=== PATIENT | male | born 1960 | race American Indian/Alaskan Native ===

== ENCOUNTER 2020-09-28 07:45 | Emergency (ER) | payer OTHER, MEDICARE ==
[2020-09-28] MEDS ORDERED: Sodium Chloride 0.9% 10 ML Syringe FLUSH PRN (08:07)
[2020-09-28] MEDS ORDERED: Hydrocortisone Sodium Succinate 100 MG/2 ML SDV IVPUSH ONE (08:09)
--- NOTE | 2020-09-28 08:55 | EDM.PDOC ---
ED HPI GENERAL MEDICAL PROBLEM - General Chief Complaint: General Stated Complaint: [facility] Time Seen by Provider: 09/28/20 08:07 Source of Information: Reports: Patient, EMS History Limitations: Reports: No Limitations - History of Present Illness INITIAL COMMENTS - FREE TEXT/NARRATIVE: The patient presents by [facility] for falls and altered mental status. 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 He has adrenal insufficiency since then. The patient and his have traveled here from [place] to visit family. He has been weak and fell a couple of times. Yesterday was a hard fall and EMS was called to help him up. He was fine and they left. This morning he is confused and has generalized weakness. He has no headache, chest pain, shortness of breath, neck pain, abdominal pain, nausea or vomiting. He is on xarelto. He has slurred speech today. Onset: Gradual Duration: Day(s): Severity: Moderate Improves with: Reports: None Worsens with: Reports: None Associated Symptoms: Reports: Confusion. Denies: Chest Pain, Cough, Fever/Chills, Headaches, Nausea/Vomiting, Shortness of Breath Neck Pain Score (Numeric/FACES): 4 - Related Data Allergies Allergy/AdvReac Type Severity Reaction Status Date / Time No Known Allergies Allergy Verified 06/29/15 12:31 Home Meds: Home Meds Levothyroxine Sodium [Synthroid] 150 mcg PO DAILY 09/28/20 [History] Phenytoin Sodium Extended [Dilantin] 200 mg PO BID 09/28/20 [History] Rivaroxaban [Xarelto] 20 mg PO DAILY 09/28/20 [History] Testosterone [Androderm] 1 each TD Q24H 09/28/20 [History] atorvaSTATin [Lipitor] 40 mg PO DAILY 09/28/20 [History] levETIRAcetam [Keppra] 2,000 mg PO BID 09/28/20 [History] predniSONE [Prednisone] 5 mg PO DAILY 09/28/20 [History] Past Medical History Other HEENT History: brain tumor 21 years ago Other Gastrointestinal History: H-pylori and ulcer - Past Surgical History Other GI Surgeries/Procedures: small intestion ruptured, surgery at 7yo ED ROS GENERAL - Review of Systems Review Of Systems: See Below Constitutional: Reports: No Symptoms HEENT: Reports: No Symptoms Respiratory: Reports: No Symptoms Cardiovascular: Reports: No Symptoms Endocrine: Reports: No Symptoms GI/Abdominal: Reports: No Symptoms : Reports: No Symptoms Musculoskeletal: Reports: Other (Ecchymosis left elbow) ED EXAM, GENERAL - Physical Exam Exam: See Below Exam Limited By: No Limitations General Appearance: Alert, No Apparent Distress Ears: Normal External Exam Nose: Normal Inspection Head: Atraumatic, Normocephalic Neck: Normal Inspection, Supple, Non-Tender Respiratory/Chest: No Respiratory Distress, Lungs Clear, Normal Breath Sounds Cardiovascular: Regular Rate, Rhythm, No Edema, No Murmur GI/Abdominal: Soft, Non-Tender, No Organomegaly, No Mass Back Exam: Normal Inspection Extremities: Other (Ecchymosis left elbow but no edema or pain upon palpation) Neurological: Alert, Other (slurred speech and generalized weakness) #1 Interpretation EKG Date: 09/28/20 Time: 08:59 Rhythm: NSR Rate (Beats/Min): 91 [place]: LAD-Left [place] Deviation P-Wave: Present QRS: Normal ST-T: Normal QT: Normal Course - Vital Signs Last Recorded V/S: Last Vital Signs Temp 98.5 F 09/28/20 07:55 Pulse 85 09/28/20 12:13 Resp 22 H 09/28/20 07:55 BP 103/62 09/28/20 12:13 Pulse Ox 94 L 09/28/20 07:55 - Orders/Labs/Meds Orders: Active Orders 24 hr Category Date Time Status Cardiac Monitoring [RC] . DIRECTED Care 09/28/20 08:08 Active EKG Documentation Completion [RC] STAT Care 09/28/20 08:08 Active Oxygen Therapy [RC] PRN Care 09/28/20 08:08 Active Peripheral IV Care [RC] . DIRECTED Care 09/28/20 08:08 Active CULTURE BLOOD [BC] Stat Lab 09/28/20 08:30 Received CULTURE BLOOD [BC] Stat Lab 09/28/20 08:30 Received UA W/MICROSCOPIC [URIN] Stat Lab 09/28/20 08:07 Ordered Sodium Chloride 0.9% [Saline Flush] Med 09/28/20 08:07 Active 10 ml FLUSH ASDIRECTED PRN Blood Culture x2 Reflex Set [OM.PC] Stat Oth 09/28/20 08:09 Ordered Peripheral IV Insertion Adult [OM.PC] Stat Oth 09/28/20 08:07 Ordered Medication Orders Sodium Chloride (Saline Flush) 10 ml FLUSH ASDIRECTED PRN PRN Reason: Keep Vein Open Last Admin: 09/28/20 08:20 Dose: 10 ml Documented by: SAIDA Labs: Laboratory Tests 09/28/20 09/28/20 09/28/20 Range/Units 08:10 08:30 08:30 WBC 25.14 H (4.23-9.07) K/mm3 RBC 4.36 L (4.63-6.08) M/mm3 Hgb 13.4 L (13.7-17.5) gm/dl Hct 41.4 (40.1-51.0) % MCV 95.0 H D (79.0-92.2) fl MCH 30.7 (25.7-32.2) pg MCHC 32.4 (32.2-35.5) g/dl RDW Std Deviation 49.1 H (35.1-43.9) fL Plt Count 232 (163-337) K/mm3 MPV 9.5 (9.4-12.3) fl Neut % (Auto) 81.2 H (34.0-67.9) % Lymph % (Auto) 8.2 L (21.8-53.1) % [place] % (Auto) 10.1 (5.3-12.2) % Eos % (Auto) 0 L (0.8-7.0) Baso % (Auto) 0.1 (0.1-1.2) % Neut # (Auto) 20.40 H (1.78-5.38) K/mm3 Lymph # (Auto) 2.06 (1.32-3.57) K/mm3 [place] # (Auto) 2.55 H (0.30-0.82) K/mm3 Eos # (Auto) 0.01 L (0.04-0.54) K/mm3 Baso # (Auto) 0.03 (0.01-0.08) K/mm3 Manual Slide Review Abnormal smear D-Dimer, Quantitative 0.74 H (0.19-0.50) mg/L Sodium (136-145) mEq/L Potassium (3.5-5.1) mEq/L Chloride (98-107) mEq/L Carbon Dioxide (21-32) mEq/L Anion Gap (5-15) BUN (7-18) mg/dL Creatinine (0.7-1.3) mg/dL Est Cr Clr Drug Dosing Estimated GFR (MDRD) (>60) mL/min BUN/Creatinine Ratio (14-18) Glucose (80-115) mg/dL POC Glucose 87 (80-115) mg/dL Lactic Acid (0.4-2.0) mmol/L Calcium (8.5-10.1) mg/dL Magnesium (1.8-2.4) mg/dl Ferritin (26-388) ng/ml Total Bilirubin (0.2-1.0) mg/dL AST (15-37) U/L ALT (16-63) U/L Alkaline Phosphatase (46-116) U/L Lactate Dehydrogenase (85-227) U/L Troponin I (0.00-0.056) ng/mL C-Reactive Protein (<1.0) mg/dL Total Protein (6.4-8.2) g/dl Albumin (3.4-5.0) g/dl Globulin gm/dL Albumin/Globulin Ratio (1-2) SARS-CoV-2 RNA (JENARO) (NEGATIVE) 09/28/20 09/28/20 09/28/20 Range/Units 08:30 08:30 09:10 WBC (4.23-9.07) K/mm3 RBC (4.63-6.08) M/mm3 Hgb (13.7-17.5) gm/dl Hct (40.1-51.0) % MCV (79.0-92.2) fl MCH (25.7-32.2) pg MCHC (32.2-35.5) g/dl RDW Std Deviation (35.1-43.9) fL Plt Count (163-337) K/mm3 MPV (9.4-12.3) fl Neut % (Auto) (34.0-67.9) % Lymph % (Auto) (21.8-53.1) % [place] % (Auto) (5.3-12.2) % Eos % (Auto) (0.8-7.0) Baso % (Auto) (0.1-1.2) % Neut # (Auto) (1.78-5.38) K/mm3 Lymph # (Auto) (1.32-3.57) K/mm3 [place] # (Auto) (0.30-0.82) K/mm3 Eos # (Auto) (0.04-0.54) K/mm3 Baso # (Auto) (0.01-0.08) K/mm3 Manual Slide Review D-Dimer, Quantitative (0.19-0.50) mg/L Sodium 138 (136-145) mEq/L Potassium 4.1 (3.5-5.1) mEq/L Chloride 103 (98-107) mEq/L Carbon Dioxide 28 (21-32) mEq/L Anion Gap 11.1 (5-15) BUN 17 (7-18) mg/dL Creatinine 1.2 (0.7-1.3) mg/dL Est Cr Clr Drug Dosing TNP Estimated GFR (MDRD) > 60 (>60) mL/min BUN/Creatinine Ratio 14.2 (14-18) Glucose 92 (80-115) mg/dL POC Glucose (80-115) mg/dL Lactic Acid 0.8 (0.4-2.0) mmol/L Calcium 8.9 (8.5-10.1) mg/dL Magnesium 1.9 (1.8-2.4) mg/dl Ferritin 164 (26-388) ng/ml Total Bilirubin 0.7 (0.2-1.0) mg/dL AST 62 H (15-37) U/L ALT 41 (16-63) U/L Alkaline Phosphatase 83 (46-116) U/L Lactate Dehydrogenase 214 (85-227) U/L Troponin I < 0.017 (0.00-0.056) ng/mL C-Reactive Protein 27.0 H* (<1.0) mg/dL Total Protein 7.0 (6.4-8.2) g/dl Albumin 3.3 L (3.4-5.0) g/dl Globulin 3.7 gm/dL Albumin/Globulin Ratio 0.9 L (1-2) SARS-CoV-2 RNA (JENARO) (NEGATIVE) 09/28/20 Range/Units 09:20 WBC (4.23-9.07) K/mm3 RBC (4.63-6.08) M/mm3 Hgb (13.7-17.5) gm/dl Hct (40.1-51.0) % MCV (79.0-92.2) fl MCH (25.7-32.2) pg MCHC (32.2-35.5) g/dl RDW Std Deviation (35.1-43.9) fL Plt Count (163-337) K/mm3 MPV (9.4-12.3) fl Neut % (Auto) (34.0-67.9) % Lymph % (Auto) (21.8-53.1) % [place] % (Auto) (5.3-12.2) % Eos % (Auto) (0.8-7.0) Baso % (Auto) (0.1-1.2) % Neut # (Auto) (1.78-5.38) K/mm3 Lymph # (Auto) (1.32-3.57) K/mm3 [place] # (Auto) (0.30-0.82) K/mm3 Eos # (Auto) (0.04-0.54) K/mm3 Baso # (Auto) (0.01-0.08) K/mm3 Manual Slide Review D-Dimer, Quantitative (0.19-0.50) mg/L Sodium (136-145) mEq/L Potassium (3.5-5.1) mEq/L Chloride (98-107) mEq/L Carbon Dioxide (21-32) mEq/L Anion Gap (5-15) BUN (7-18) mg/dL Creatinine (0.7-1.3) mg/dL Est Cr Clr Drug Dosing Estimated GFR (MDRD) (>60) mL/min BUN/Creatinine Ratio (14-18) Glucose (80-115) mg/dL POC Glucose (80-115) mg/dL Lactic Acid (0.4-2.0) mmol/L Calcium (8.5-10.1) mg/dL Magnesium (1.8-2.4) mg/dl Ferritin (26-388) ng/ml Total Bilirubin (0.2-1.0) mg/dL AST (15-37) U/L ALT (16-63) U/L Alkaline Phosphatase (46-116) U/L Lactate Dehydrogenase (85-227) U/L Troponin I (0.00-0.056) ng/mL C-Reactive Protein (<1.0) mg/dL Total Protein (6.4-8.2) g/dl Albumin (3.4-5.0) g/dl Globulin gm/dL Albumin/Globulin Ratio (1-2) SARS-CoV-2 RNA (JENARO) Negative (NEGATIVE) Meds: Medications Generic Name Dose Route Start Last Admin Trade Name Freq PRN Reason Stop Dose Admin Sodium Chloride 10 ml 09/28/20 08:07 09/28/20 08:20 Saline Flush FLUSH 10 ml ASDIRECTED PRN Administration Keep Vein Open Discontinued Medications Generic Name Dose Route Start Last Admin Trade Name Freq PRN Reason Stop Dose Admin Hydrocortisone Sodium Succinate 100 mg 09/28/20 08:09 09/28/20 08:20 Solu-Cortef IVPUSH 09/28/20 08:10 100 mg ONETIME ONE Administration - Re-Assessments/Exams Free Text/Narrative Re-Assessment/Exam: 09/28/20 09:07 A stroke alert was called. I ordered oxygen, IV saline lock, EKG, CT of his head, labs and hydrocortisone 100mg IV. His EKG shows a NSR with no acute changes. The radiologist called and the patient has interval appearance of low-density bilateral subdural collections measuring up to 9mm on the right and 7mm on the left representing chronic or subacute subdural hematomas. Remainder of findings non acute. 09/28/20 10:12 His WBC was elevated at 25.14. He is on prednisone. His Hgb is a little low at 13.4. His platelets are normal at 232. His D-dimer is elevated at 0.74. His troponin is negative. His CRP is elevated at 27. I was able to get in contact with the patient's and she said he has been more weak for the past week. He fell a couple days ago and last night. This morning he was more weak and had slurred speech. I have called [facility] in [place]. I am waiting to talk with Dr Brush the neurosurgeon outreach liaison and he is not concerned about the subdural bleeds. These are chronic and probably from weeks or months ago. His shunt looks go be working. There is nothing neurosurgical needed. I still need placement for the falls and weakness. [facility] may have beds opening up after noon. I will check back. 09/28/20 12:17 I checked with [facility] in [place] and they did have a bed that was opening up so on. I talked with Dr Steward and he accepted the patient. Departure - Departure Time of Disposition: 12:20 Disposition: DC/Tfer to Acute Hospital 02 Condition: Poor Clinical Impression: Subdural hematoma, Adrenal crisis Fall Qualifiers: Encounter type: initial encounter Qualified Code(s): W19.XXXA - Unspecified fall, initial encounter - Discharge Information Referrals: PCP,None [Ordering Only Provider] - Forms: ED Department Discharge Sepsis Event Note (ED) - Evaluation Sepsis Screening Result: No Definite Risk - Focused Exam Vital Signs: Vital Signs Temp Pulse Resp BP Pulse Ox 09/28/20 12:13 85 103/62 09/28/20 07:55 98.5 F 93 22 H 111/67 94 L - My Orders Last 24 Hours: My Active Orders 09/28/20 08:07 UA W/MICROSCOPIC [URIN] Stat Sodium Chloride 0.9% [Saline Flush] 10 ml FLUSH ASDIRECTED PRN Peripheral IV Insertion Adult [OM.PC] Stat 09/28/20 08:08 Cardiac Monitoring [RC] . DIRECTED EKG Documentation Completion [RC] STAT Oxygen Therapy [RC] PRN Peripheral IV Care [RC] . DIRECTED 09/28/20 08:09 Blood Culture x2 Reflex Set [OM.PC] Stat 09/28/20 08:30 CULTURE BLOOD [BC] Stat CULTURE BLOOD [BC] Stat - Assessment/Plan Last 24 Hours: My Active Orders 09/28/20 08:07 UA W/MICROSCOPIC [URIN] Stat Sodium Chloride 0.9% [Saline Flush] 10 ml FLUSH ASDIRECTED PRN Peripheral IV Insertion Adult [OM.PC] Stat 09/28/20 08:08 Cardiac Monitoring [RC] . DIRECTED EKG Documentation Completion [RC] STAT Oxygen Therapy [RC] PRN Peripheral IV Care [RC] . DIRECTED 09/28/20 08:09 Blood Culture x2 Reflex Set [OM.PC] Stat 09/28/20 08:30 CULTURE BLOOD [BC] Stat CULTURE BLOOD [BC] Stat
--- NOTE | 2020-09-28 09:30 | CR ---
PROCEDURE INFORMATION: Exam: XR Chest, 1 View Exam date and time: 09/28/2020 8:11 AM Age: 60 years old Clinical indication: Chest pain; Type not specified TECHNIQUE: Imaging protocol: XR of the chest Views: 1 view. COMPARISON: DX Chest 2V 03/16/2015 8:51 PM FINDINGS: Tubes, catheters and devices: Shunt catheter along the right chest and abdomen. Lungs: No evidence of acute pulmonary process. Pleural space: Unremarkable. No pleural effusion. No pneumothorax. Heart/Mediastinum: Unremarkable. No cardiomegaly. Bones/joints: Mild degenerative changes of the shoulder joints. IMPRESSION: No evidence of acute pulmonary process. Remainder of findings as described above. Thank you for allowing us to participate in the care of your patient. Dictated and Authenticated by: Daylin Ag MD 09/28/2020 10:13 AM Central Time ([place] & [place]) KAYODE
--- NOTE | 2020-09-28 09:32 | CT ---
PROCEDURE INFORMATION: Exam: CT Head Without Contrast Exam date and time: 09/28/2020 8:11 AM Age: 60 years old Clinical indication: Speech disturbance; Slurred speech; Prior surgery; Surgery type: Patient has had previous brain tumor removed according to nurse TECHNIQUE: Imaging protocol: Computed tomography of the head without contrast. Other technique: STROKE PROTOCOL was implemented. COMPARISON: CT Head wo Cont 06/29/2015 12:50 PM FINDINGS: Tubes, catheters and devices: Shunt catheter enters the right parietal region with tip in the left frontal horn. Brain: Prominent sulci. Patchy hypodensity of the cerebral white matter which are nonspecific but likely secondary to microangiopathic changes. Focus of left parietal encephalomalacia. Interval appearance of low-density bilateral subdural collections measuring up to 9 mm on the right and 7 mm on the left likely representing chronic or subacute subdural hematomas. Cerebral ventricles: The ventricles are prominent secondary to diffuse volume loss/atrophy. Bones/joints: Status post suboccipital craniectomy. Paranasal sinuses: Mild mucoperiosteal thickening of the paranasal sinuses. Mastoid air cells: Visualized mastoid air cells are well aerated. Soft tissues: Unremarkable. IMPRESSION: 1. Interval appearance of low-density bilateral subdural collections measuring up to 9 mm on the right and 7 mm on the left likely representing chronic or subacute subdural hematomas. 2. Remainder of findings as described above. These findings were discussed with GARCIA Fischer at 10:25 a.m. EST. ASSESSMENT: ASPECTS ([place] Stroke Program Early CT Score) is 10 Thank you for allowing us to participate in the care of your patient. Dictated and Authenticated by: Daylin Ag MD 09/28/2020 9:28 AM Central Time ([place] & [place]) [facility]ENTER[facility]assan
[2020-09-28 12:13] VITALS: BP 103/62; PULSE 85
== END 2020-09-28 14:00 ==
LOC: JD.ED 07:45
DX: S06.5X9A Traumatic subdural hemorrhage with loss of consciousness of unspecified duration, initial encounter (principal); E27.2 Addisonian crisis; Z79.01 Long term (current) use of anticoagulants; Z79.899 Other long term (current) drug therapy; W19.XXXA Unspecified fall, initial encounter
CPT/HCPCS: 36415; 70450; 71045; 80053; 82728; 82962; 83605; 83615; 83735; 84484; 85025; 85379; 86140; 87040; 93005; 96374; 99285; J1720; U0002; 93010; 99284

== ENCOUNTER 2021-07-19 06:36 | Emergency (ER) | payer MEDICARE, OTHER ==
--- NOTE | 2021-07-19 06:52 | EDM.PDOC ---
ED HPI GENERAL MEDICAL PROBLEM <Cash Villaseñor - Last Filed: 07/19/21 10:52> - General Source of Information: Reports: Patient, EMS History Limitations: Reports: Physical Impairment (Patient speaks quite slowly as he has had previous brain tumor resection but understands Persian very well.) - History of Present Illness Onset: Sudden Onset Date: 07/18/21 Onset Time: 23:00 Duration: Hour(s):, Constant Location: Reports: Head, Neck, Chest, Back (He did lower back) Quality: Reports: Ache Severity: Moderate Improves with: Reports: None Worsens with: Reports: Movement (Medics had a good deal of difficulty getting him up from the floor with a lot of pain reportedly left ribs and lower back) Context: Reports: Trauma (Reportedly fell out of a chair at home around 2300 hrs. last night and was on the floor until discovered at 0500 hrs. this morning. He obviously struck his head with a superficial abrasion left vertex parietal scalp. He is on Xarelto 10 mg daily and therefore he became a trauma alert.). Denies: Activity, Exercise, Lifting, Sick Contact Associated Symptoms: Reports: Chest Pain, Malaise, Weakness (Right-sided hemiparesis since brain tumor resection 1991). Denies: Confusion, Cough, cough w sputum (Chest wall pain to palpation), Diaphoresis, Fever/Chills, Headaches, Nausea/Vomiting Treatments CORD TIRE BUILDER: Reports: Other (see below) (Attics reportedly given 100 mcg of fentanyl at 0500 hrs. and again at 0530 hrs. in route to [place].) Right Chest Pain Score (Numeric/FACES): 5 <Pancho Harris - Last Filed: 07/23/21 19:55> - General Chief Complaint: Trauma Stated Complaint: [facility] Time Seen by Provider: 07/19/21 06:38 - History of Present Illness INITIAL COMMENTS - FREE TEXT/NARRATIVE: 60-year-old male of [place] ancestry presents to the ED per [place] [facility]. He reports that about 2300 hrs. central standard time the chair in which she was sitting somehow overturned causing him to fall to the floor. Partly hit his head on the floor. No loss of consciousness. Is unclear how long he may have laid on the floor but it appears that was for about 5 hours. Paramedics were summoned to his home around 0500 hrs. central standard time. They indicate that he received 100 mcg of fentanyl at 0500 hrs. and again at 0530 hrs. for pain. Is unclear where he is having most of his pain. He obviously hit his head and is having some pain within his left lateral ribs as well. He denies any pain in his hips or lower extremities. He falls frequently as he has had a previous brain tumor resected in 1991. 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 His had previous radiotherapy to the brain x25 treatments. Was complicated by the development of seizure disorder. Primarily grand mal convulsions treated with Keppra. Brain biopsy in September 2014 confirmed radiation damage. 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 Patient wears depends at all times due to incontinence of both urine and stool. He has a right-sided hemiparesis. Notes indicate that he was using Dilantin for seizure disorder and is unclear if he still on this medication. He is currently on Xarelto 10 mg daily. This places him at risk of potential intracranial bleeding since he struck his head. Therefore a trauma alert was called on this patient. (Pancho Harris) - Related Data Allergies Allergy/AdvReac Type Severity Reaction Status Date / Time No Known Allergies Allergy Verified 07/19/21 06:54 Home Meds: Home Meds Levothyroxine Sodium [Synthroid] 150 mcg PO DAILY 09/28/20 [History] Phenytoin Sodium Extended [Dilantin] 100 mg PO BID 09/28/20 [History] Rivaroxaban [Xarelto] 10 mg PO DAILY 09/28/20 [History] atorvaSTATin [Lipitor] 40 mg PO DAILY 09/28/20 [History] levETIRAcetam [Keppra] 750 mg PO BID 09/28/20 [History] predniSONE [Prednisone] 2.5 mg PO DAILY 09/28/20 [History] Hydrocodone/Acetaminophen [HYDROcodone-Acetaminophen 5-325 MG] 1 each PO ASDIRECTED PRN #20 tab 07/19/21 [Rx] Past Medical History HEENT History: Reports: Other (See Below) Other HEENT History: brain tumor 21 years ago. 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 He takes 5 mg of prednisone daily Oncologic (Cancer) History: Reports: Other (See Below) Other Oncologic History: brain tumor - Past Surgical History Other GI Surgeries/Procedures: small intestion ruptured, surgery at 7yo Endocrine Surgical History: Reports: Adrenal Gland <Pancho Harris - Last Filed: 07/23/21 19:55> Social & Family History - Caffeine Use Caffeine Use: Reports: Coffee - Living Situation & Occupation Living situation: Reports: Occupation: Disabled <Pancho Harris - Last Filed: 07/23/21 19:55> Review of Systems - Review of Systems Review Of Systems: See Below Constitutional: Reports: Weakness. Denies: Chills, Diaphoresis, Fever Eyes: Reports: Other (Patient has poor vision eye loss of right sided peripheral vision. Suspect he has a hemianopsia post) Ears: Reports: No Symptoms ( brain surgery) Nose: Reports: No Symptoms Mouth/Throat: Reports: No Symptoms, Other Respiratory: Denies: Shortness of Breath, Wheezing, Pleuritic Chest Pain, Cough, Sputum Cardiovascular: Reports: Chest Pain (Left-sided chest pain where he hit his ribs on the floor last night) GI/Abdominal: Reports: Other (Street of previous GI bleeds.) Genitourinary: Reports: Other (Urinary incontinence as well as stool incontinence) Musculoskeletal: Reports: Other (Right-sided hemiparesis but apparently gets around with the aid of a walker.) Skin: Reports: No Symptoms Neurological: Reports: Weakness (Neurolyse weakness. He is prone to falls.). Denies: Confusion, Dizziness Psychiatric: Reports: No Symptoms <Pancho Harris - Last Filed: 07/23/21 19:55> ED EXAM, GENERAL - Physical Exam Exam: See Below Exam Limited By: No Limitations General Appearance: Alert, WD/WN, Other (Resents with a sheep will flood in place. He does answer questions although quite slowly. Temperature is 36.2 degrees heart rate 63 in sinus respiratory was 20 with O2 sats of 93% on room air. BP 108 on 66) Eye Exam: Bilateral Eye: Normal Inspection (Mild blepharal pallor bilaterally no scleral icterus), PERRL Ears: Normal External Exam Throat/Mouth: Other (Is mildly dry and coated. Poor dentition. No evidence of intraoral bleeding or injury to the tongue) Head: Other (She has a linear abrasion approximately a centimeter in width mid left vertex of his scalp over the right lower lobe. No scalp hematoma. Evidence of an old aga hole left occipital scalp) Neck: Other (Planes of tenderness to palpation midline of cervical spine from C3-C7 level. No palpable deformities or step-offs no paraspinal muscle spasm) Respiratory/Chest: Lungs Clear, Normal Breath Sounds, No Accessory Muscle Use, Respiratory Distress (Tachypnea at rest with O2 sats 92 to 93% room air. Apparently he was on 2 L of oxygen and in route to [place] administered by the paramedics from [place]. However this was after receiving 100 mcg of fentanyl IV x2 doses half hour apart), Other (She has diffuse tenderness on palpation of ribs 6 through 11 mid axillary and posterior axillary line left side with no palpable subcutaneous emphysema or crepitus.) Cardiovascular: Normal Peripheral Pulses, Regular Rate, Rhythm, No Edema, No Gallop, No Murmur, No Rub Peripheral Pulses: 2+: Carotid (L), Carotid (R), Posterior Tibial (L), Posterior Tibial (R), Dorsalis Pedis (L), Dorsalis Pedis (R) GI/Abdominal: Normal Bowel Sounds, Soft, Non-Tender, No Organomegaly, No Mass, Pelvis Stable, Other (Notable surgical scars particularly across his left upper abdomen of unclear reasoning.) (Male) Exam: No Hernia Rectal (Males) Exam: Other (Depends apparently is incontinent of urine and stool.) Back Exam: Other (Patient of his back reveals tenderness at the thoracolumbar junction and L4-L5 region of his lower back.) Extremities: Other (Venous injuries to his shoulders acromioclavicular joints collarbones humeri elbows forearms wrists or hands. Similarly I was able to lift both of his legs off the gurney and he has loss of external rotation of both hips combined with osteoarthritic change but no pain in his pelvis femurs knees or ) Neurological: Alert, Oriented, CN II-XII Intact, Normal Cognition Psychiatric: Normal Affect, Normal Mood Skin Exam: Warm, Dry, Intact, Normal Color, No Rash <Pancho Harris - Last Filed: 07/23/21 19:55> #1 Interpretation EKG Date: 07/19/21 Rhythm: Other (Normal sinus rhythm borderline bradycardia) Rate (Beats/Min): 54 Stuart: LAD-Left Stuart Deviation P-Wave: Present QRS: Normal ST-T: Normal QT: Normal Comparison: No Change (No significant morphologic changes from 09/28/2020) <Cash Villaseñor - Last Filed: 07/19/21 10:52> #1 Interpretation EKG Interpretation Comments: Abnormal EKG (Cash Villaseñor) Course <Cash Villaseñor - Last Filed: 07/19/21 10:52> <Pancho Harris - Last Filed: 07/23/21 19:55> - Vital Signs Last Recorded V/S: Last Vital Signs Temp 36.1 C 07/19/21 09:58 Pulse 57 L 07/19/21 09:58 Resp 16 07/19/21 09:58 BP 98/60 07/19/21 09:58 Pulse Ox 93 L 07/19/21 09:58 - Orders/Labs/Meds Labs: Laboratory Tests 07/19/21 07/19/21 07/19/21 Range/Units 07:30 07:30 07:30 WBC 7.68 (4.23-9.07) K/mm3 RBC 4.21 L (4.63-6.08) M/mm3 Hgb 13.1 L (13.7-17.5) gm/dl Hct 39.9 L (40.1-51.0) % MCV 94.8 H (79.0-92.2) fl MCH 31.1 (25.7-32.2) pg MCHC 32.8 (32.2-35.5) g/dl RDW Std Deviation 45.1 H (35.1-43.9) fL Plt Count 238 (163-337) K/mm3 MPV 9.7 (9.4-12.3) fl Neut % (Auto) 60.1 (34.0-67.9) % Lymph % (Auto) 29.6 (21.8-53.1) % [place] % (Auto) 8.5 (5.3-12.2) % Eos % (Auto) 1.4 (0.8-7.0) Baso % (Auto) 0.3 (0.1-1.2) % Neut # (Auto) 4.62 (1.78-5.38) K/mm3 Lymph # (Auto) 2.27 (1.32-3.57) K/mm3 [place] # (Auto) 0.65 (0.30-0.82) K/mm3 Eos # (Auto) 0.11 (0.04-0.54) K/mm3 Baso # (Auto) 0.02 (0.01-0.08) K/mm3 PT 10.9 (9.7-12.0) SECONDS INR 1.02 APTT 23.9 (21.7-31.4) SECONDS Sodium (136-145) mEq/L Potassium (3.5-5.1) mEq/L Chloride (98-107) mEq/L Carbon Dioxide (21-32) mEq/L Anion Gap (5-15) BUN (7-18) mg/dL Creatinine (0.7-1.3) mg/dL Est Cr Clr Drug Dosing mL/min Estimated GFR (MDRD) (>60) mL/min BUN/Creatinine Ratio (14-18) Glucose (70-99) mg/dL Calcium (8.5-10.1) mg/dL Magnesium (1.8-2.4) mg/dL Total Bilirubin (0.2-1.0) mg/dL AST (15-37) U/L ALT (16-63) U/L Alkaline Phosphatase (46-116) U/L Creatine Kinase (39-308) U/L Troponin I (0.00-0.056) ng/mL C-Reactive Protein (<1.0) mg/dL NT-Pro-B Natriuret Pep (0-125) pg/mL Total Protein (6.4-8.2) g/dl Albumin (3.4-5.0) g/dl Globulin gm/dL Albumin/Globulin Ratio (1-2) Urine Color Yellow (Yellow) Urine Appearance Clear (Clear) Urine pH 6.0 (5.0-8.0) Ur Specific Moss 1.025 (1.005-1.030) Urine Protein Negative (Negative) Urine Glucose (UA) Negative (Negative) Urine Ketones Negative (Negative) Urine Occult Blood 2+ H (Negative) Urine Nitrite Negative (Negative) Urine Bilirubin Negative (Negative) Urine Urobilinogen 0.2 (0.2-1.0) Ur Leukocyte Esterase Negative (Negative) Urine RBC 0-5 (0-5) /hpf Urine WBC 0-5 (0-5) /hpf Ur Epithelial Cells 0-5 (0-5) /hpf Urine Bacteria Few (FEW) /hpf Urine Mucus Not seen (FEW) /hpf Phenytoin (10.0-20.0) ug/mL 07/19/21 07/19/21 07/19/21 Range/Units 07:30 07:30 07:30 WBC (4.23-9.07) K/mm3 RBC (4.63-6.08) M/mm3 Hgb (13.7-17.5) gm/dl Hct (40.1-51.0) % MCV (79.0-92.2) fl MCH (25.7-32.2) pg MCHC (32.2-35.5) g/dl RDW Std Deviation (35.1-43.9) fL Plt Count (163-337) K/mm3 MPV (9.4-12.3) fl Neut % (Auto) (34.0-67.9) % Lymph % (Auto) (21.8-53.1) % [place] % (Auto) (5.3-12.2) % Eos % (Auto) (0.8-7.0) Baso % (Auto) (0.1-1.2) % Neut # (Auto) (1.78-5.38) K/mm3 Lymph # (Auto) (1.32-3.57) K/mm3 [place] # (Auto) (0.30-0.82) K/mm3 Eos # (Auto) (0.04-0.54) K/mm3 Baso # (Auto) (0.01-0.08) K/mm3 PT (9.7-12.0) SECONDS INR APTT (21.7-31.4) SECONDS Sodium 142 (136-145) mEq/L Potassium 4.0 (3.5-5.1) mEq/L Chloride 107 (98-107) mEq/L Carbon Dioxide 28 (21-32) mEq/L Anion Gap 11.0 (5-15) BUN 20 H (7-18) mg/dL Creatinine 1.0 (0.7-1.3) mg/dL Est Cr Clr Drug Dosing 86.56 mL/min Estimated GFR (MDRD) > 60 (>60) mL/min BUN/Creatinine Ratio 20.0 H (14-18) Glucose 90 (70-99) mg/dL Calcium 8.0 L (8.5-10.1) mg/dL Magnesium 2.1 (1.8-2.4) mg/dL Total Bilirubin 0.2 (0.2-1.0) mg/dL AST 22 (15-37) U/L ALT 33 (16-63) U/L Alkaline Phosphatase 82 (46-116) U/L Creatine Kinase 134 (39-308) U/L Troponin I < 0.017 (0.00-0.056) ng/mL C-Reactive Protein 1.5 H* (<1.0) mg/dL NT-Pro-B Natriuret Pep 122 (0-125) pg/mL Total Protein 6.2 L (6.4-8.2) g/dl Albumin 3.0 L (3.4-5.0) g/dl Globulin 3.2 gm/dL Albumin/Globulin Ratio 0.9 L (1-2) Urine Color (Yellow) Urine Appearance (Clear) Urine pH (5.0-8.0) Ur Specific Moss (1.005-1.030) Urine Protein (Negative) Urine Glucose (UA) (Negative) Urine Ketones (Negative) Urine Occult Blood (Negative) Urine Nitrite (Negative) Urine Bilirubin (Negative) Urine Urobilinogen (0.2-1.0) Ur Leukocyte Esterase (Negative) Urine RBC (0-5) /hpf Urine WBC (0-5) /hpf Ur Epithelial Cells (0-5) /hpf Urine Bacteria (FEW) /hpf Urine Mucus (FEW) /hpf Phenytoin 8.4 L (10.0-20.0) ug/mL Meds: Medications Discontinued Medications Generic Name Dose Route Start Last Admin Trade Name Freq PRN Reason Stop Dose Admin Hydrocodone Bitart/Acetaminophen 1 tab 07/19/21 10:47 07/19/21 10:53 Acetaminophen/Hydrocodone 325-5 Mg Tab PO 07/19/21 10:48 1 tab ONETIME ONE Administration Sodium Chloride 1,000 mls @ 100 mls/hr 07/19/21 07:00 07/19/21 07:30 Normal Saline IV 100 mls/hr ASDIRECTED MALKA Administration Iopamidol 100 ml 07/19/21 09:41 07/19/21 09:47 Iopamidol 612 Mg/Ml 100 Ml Bottle IVPUSH 07/19/21 09:42 100 ml ONETIME ONE Administration Iopamidol 50 ml 07/19/21 09:41 07/19/21 09:47 Iopamidol 612 Mg/Ml 50 Ml Sdv IVPUSH 07/19/21 09:42 25 ml ONETIME ONE Administration Sodium Chloride 10 ml 07/19/21 09:41 07/19/21 09:48 Sodium Chloride 0.9% 10 Ml Syringe FLUSH 07/19/21 09:42 10 ml ONETIME ONE Administration - Radiology Interpretation Free Text/Narrative:: 60-year-old male who is of [place] ancestry presents to the ED per [place] [facility]. Patient states he was sitting on a chair and either fell or the chair tipped over around 2300 hrs. last night. No one found him on the floor until around 0500 hrs. this morning when the ambulance was called. It appeared that he had struck his head as he has a an abrasion over the left parietal scalp but no scalp hematomas evident at this time. He is on Xarelto 10 mg daily for unclear reason. He appears to be in sinus rhythm. He has very poor mobility and falls frequently since he had a brain tumor resected in 1991. Apparently this was a ependymoma close to his pituitary gland. He then suffered significant brain necrosis from radiation treatments provided to him at that time as well as injury to the pituitary gland with development of adrenal insufficiency. He is currently on 5 mg of prednisone daily. Plan he will have CT head, CT cervical cervical spine, CT thoracic and lumbar spine and CT chest without contrast as he would not be able to stand or sit appropriately for x-rays of his ribs. Routine labs were ordered as well. He is afebrile at this time. Care will be turned over to Dr. Villaseñor as it is change of shift. I have not ordered a coronavirus study on this patient at this time (Pancho Harris) - Re-Assessments/Exams Free Text/Narrative Re-Assessment/Exam: 07/19/21 07:[address] results. Talking to the and the patient the patient was leaning over to try and take the booster off the toilet lost his balance and hit the side of the tub with his chest he does not believe that he actually struck his head. Palpation of this area does not reveal any obvious injury or significant tenderness. His pain is mostly in the right chest extending into the abdomen slightly Patient has been on Xarelto for quite some time after a significant neck injury the patient developed bilateral DVTs. The patient gets around using a wheelchair most the time. Occasionally uses a walker but he has not use this modality quite some time. 07/19/21 09:30 CTs are back they show acute fractures of the right sixth and seventh and eighth ribs. No acute changes noted with the spine however he has significant degenerative changes from prior injurys. He has a compression deformity at T5 with a large Schmorl's node the superior endplate compressions less than 50% however there is 50% height loss at T5 secondary to the Schmorl's node defect. Repeat examination at this point shows some rib pain as to be expected. But I am concerned about some abdominal discomfort this seems to be midline abdominal pain going to the right in the lower abdomen. And with palpation this is much more concerning then palpation over the rib fractures. We will obtain a CT of the abdomen. Patient is moving air well in both lung zheng heart sounds are normal. 07/19/21 10:52 Patient is doing okay at this time CT of the abdomen pelvis is negative for any acute changes. Discussed further evaluation with the patient and they would like to go home at this point. We will start him on [place] 5/325 1 every 4-6 hours as needed for pain I explained to him this is good take several weeks to have significant pain relief. (Cash Villaseñor) Departure - Departure Time of Disposition: 10:56 <Cash Villaseñor - Last Filed: 07/19/21 10:52> <Pancho Harris - Last Filed: 07/23/21 19:55> - Departure Disposition: Home, Self-Care 01 Clinical Impression: Fracture of three ribs of right side - Discharge Information Prescriptions: Hydrocodone/Acetaminophen [HYDROcodone-Acetaminophen 5-325 MG] 1 each PO ASDIRECTED PRN #20 tab PRN Reason: Pain Instructions: Rib Fracture, [id number] Referrals: PCP,Not In Area [Primary Care Provider] - Forms: ED Department Discharge Additional Instructions: Return to the emergency room with any questions problems or worsening symptoms. Be very suspicious of breathing difficulties or developing a fever return immediately if these develop. As we discussed do deep breathing exercises for 5 maximal breaths then hold it for 5 or 6 seconds and slowly let it out do this 5 times every couple hours while awake. I sent a prescription for [place] take 1 every 4-6 hours as needed for pain. You were given to have some pain but this will help knock the edge off. This was sent to [facility] up by [place]. Follow-up with your regular physician early this next week.
[2021-07-19] MEDS ORDERED: Sodium Chloride 0.9% 1,000 ML IV SCH (07:00)
[2021-07-19] MEDS ORDERED: Sodium Chloride 0.9% 10 ML Syringe FLUSH ONE (09:41)
[2021-07-19] MEDS ORDERED: Iopamidol 612 MG/ML 50 ML SDV IVPUSH ONE (09:41)
[2021-07-19] MEDS ORDERED: Iopamidol 612 MG/ML 100 ML Bottle IVPUSH ONE (09:41)
[2021-07-19 10:01] VITALS: BP 98/60; PULSE 57
--- NOTE | 2021-07-19 10:09 | CT ---
CT cervical spine Technique: Multiple axial sections were obtained from above C1 inferiorly to the top of T2. Reconstructed coronal and sagittal images were obtained. Comparison: Prior CT cervical spine study of 06/29/15. Findings: Deformity is noted of C2 which relates to an old healed fracture which was noted on prior CT exam. Mild degenerative change is noted between the dens and anterior arch of C1. Severe disc space narrowing is noted at C6-7 with posterior osteophytes. Anterior osteophytes are noted at C5-6 and C6-7. There is mild disc space narrowing noted at C2-3. Minimal neural foraminal stenosis is noted on the right side at C3-4. Other neural foramina are patent. No central canal stenosis is seen. Mild scattered degenerative apophyseal change is noted throughout the cervical spine. No acute fracture is seen. No abnormal subluxation is seen. Impression: 1. Healed fractures within C2 which were noted on prior CT exam. 2. Mild degenerative change as noted above. 3. Nothing acute is appreciated on CT study of the cervical spine. Diagnostic code #2 I agree with preliminary report from [facility], finalized on 07/19/21, 9:13 AM Central Daylight Time, code 1
--- NOTE | 2021-07-19 10:24 | CT ---
CT chest Technique: Multiple axial sections were obtained from above the lung apices inferiorly through the lung bases. Intravenous contrast was not utilized. Reconstructed coronal and sagittal images were obtained. Comparison: No prior chest CT study, prior chest x-ray of 03/16/15. Findings: Thoracic aorta shows no aneurysm. Minimal atherosclerotic calcification is seen. Lymph nodes are noted within the mediastinum which are within normal limits. No axillary adenopathy is seen. No pericardial thickening is seen. Small portion of the visualized upper abdominal structures show previous cholecystectomy. Nothing acute is definitely appreciated. Slight parenchymal densities are seen as well as minimal pleural thickening posteriorly within both lungs. Findings most likely represent areas of presumed scarring and possible atelectasis. Lungs otherwise are clear. No pneumothorax is seen. No pleural effusions are seen. Bone window settings were reviewed. Nondisplaced fractures are noted within the anterolateral right sixth, seventh and eighth ribs. Nondisplaced fractures are also noted within the anterolateral left sixth and seventh ribs. Compression deformity is seen within the mid to upper thoracic spine which appears old. Disc space narrowing is partially seen within the lower cervical spine. Impression: 1. Three nondisplaced rib fractures within the anterolateral right chest and two nondisplaced rib fractures within the anterolateral left chest. 2. Slight parenchymal change and pleural thickening within the posterior lungs on both sides most likely representing areas of scarring and possible minimal atelectasis. 3. Other incidental findings as noted above. Diagnostic code #3 I agree with preliminary report from [facility], finalized on 07/19/21, 9:32 AM CDT
--- NOTE | 2021-07-19 10:29 | CT ---
Head CT Technique: Multiple axial sections through the brain were obtained. Intravenous contrast was not utilized. Reconstructed coronal and sagittal images were obtained. Comparison: Prior head CT study of 06/29/15. Findings: Ventricles along with basal cisterns and sulci over the convexities are prominent. Intraventricular shunt is seen which appears stable from prior exam. Old white matter infarct is noted within the left periventricular white matter measuring 7 mm which is an interval change. Old stable infarct is noted within the posterior left parietal region. There are what appear to be old small bilateral subdural collections which are low density. Each measures around 1 cm in size. These findings are slightly more prominent than on previous head CT study. Previous craniotomy is noted. No acute calvarial abnormality is appreciated. Visualized mastoid sinuses show nothing acute. Visualized paranasal sinuses show nothing acute. Impression: 1. Small low-density and old subdural hematomas on both sides measuring around 1 cm. These have changed in size from previous head CT study. No acute hemorrhage is seen. 2. Old infarcts as noted above. 3. No acute intracranial hemorrhage is seen. 4. Stable craniotomy defects and interventricular shunt. Diagnostic code #3 I mostly agree with preliminary report from [facility], finalized on 07/19/21, 9:09 AM CDT, code 2
--- NOTE | 2021-07-19 10:31 | CT ---
CT abdomen and pelvis Technique: Multiple axial sections were obtained from above the dome of the diaphragm inferiorly through the pubic symphysis. Intravenous contrast was utilized. No oral contrast has been given. Delayed images were also obtained through the abdomen and pelvis. Reconstructed coronal and sagittal images were obtained. Comparison: No prior CT abdomen or pelvis study is available. Findings: Findings within both lung bases as noted on chest CT. Liver contains no focal parenchymal abnormality. Spleen size is normal. Surgical clips are seen from prior cholecystectomy. Adrenal glands show no nodule. Pancreas shows no discrete abnormality. Kidneys show symmetric contrast enhancement. Small low density abnormality is noted within the right kidney measuring 7 mm. This is too small to accurately measure by Hounsfield units but statistically is most likely due to a cyst. Delayed images show contrast excretion from both kidneys into the ureters and within the bladder. No contrast extravasation is seen. Abdominal aorta shows no aneurysm. Atherosclerotic calcification is seen within the aorta and within the iliac vessels. No retroperitoneal adenopathy or mesenteric abnormalities are seen. Intraventricular shunt catheter is seen which terminates within the upper pelvis. No pelvic mass or adenopathy is seen. Fat-containing left inguinal hernia is noted. Appendix is seen which is normal in size. No free fluid or inflammatory change is seen. Bone window settings were reviewed which show severe disc space narrowing and vacuum phenomena within the L5-S1 disc. Degenerative change is seen within the sacroiliac joints. No acute osseous abnormality is appreciated. Impression: 1. Multiple findings as noted above believed to be chronic. 2. Nothing acute is appreciated on CT study of the abdomen and pelvis. Diagnostic code #2
[2021-07-19] MEDS ORDERED: Acetaminophen/HYDROcodone 325-5 MG Tab PO ONE (10:47)
--- NOTE | 2021-07-19 11:15 | CT ---
CT lumbar spine Technique: Multiple axial sections were obtained through the lumbar spine. Reconstructed coronal and sagittal images were obtained. Comparison: No prior lumbar spine imaging is available. Findings: L3-4: Minimal circumferential disc bulge is seen. L5-S1: Severe disc space narrowing is noted with vacuum phenomena. Small posterior osteophytes and mild posterior disc bulging is seen. No central canal stenosis is noted. Bilateral neural foraminal stenosis is seen. Other levels show no disc herniation, central canal stenosis or neural foraminal stenosis. No acute fracture or abnormal subluxation is seen. Impression: 1. Degenerative change as noted above. 2. No acute fracture or subluxation is seen. Diagnostic code #2 I agree with preliminary report from [facility], finalized on 07/19/21, 9:43 AM CDT, code 1
--- NOTE | 2021-07-19 11:16 | CT ---
CT thoracic spine Technique: Multiple axial sections through the thoracic spine were obtained. Reconstructed coronal and sagittal images were obtained. Comparison: No prior thoracic spine imaging is available. Findings: Mild to moderate compression deformity is seen within T5. This is believed to be old. Spurring is noted on the right side at T10-11 from the apophyseal joint which causes right-sided neural foraminal stenosis. Other neural foramina are felt to be patent. Slight scattered disc space narrowing is noted within the lower thoracic spine. Several detached densities are noted within the spinous processes within the lower thoracic spine which are old. No acute fracture or abnormal subluxation is seen. Impression: 1. Compression deformity of T5 which is believed to be old. 2. Mild degenerative change as noted above. 3. No acute fracture or abnormal subluxation is seen. Diagnostic code #2 I agree with preliminary report from [facility], finalized on 07/19/21, 9:39 AM CDT, code 1
== END 2021-07-19 11:20 | disposition home or self-care (01) ==
LOC: JD.ED 06:36
DX: S22.41XA Multiple fractures of ribs, right side, initial encounter for closed fracture (principal); R94.31 Abnormal electrocardiogram [ECG] [EKG]; W18.30XA Fall on same level, unspecified, initial encounter
CPT/HCPCS: 36415; 70450; 71250; 72125; 72128; 72131; 74177; 80053; 80185; 81001; 82550; 83735; 83880; 84484; 85025; 85610; 85730; 86140; 93005; 99284; A9270; J7030; Q9967; 93010

== ENCOUNTER 2021-08-25 13:29 | Emergency (ER) | payer MEDICARE, OTHER ==
[2021-08-25 13:42] VITALS: BP 138/102; PULSE 61
--- NOTE | 2021-08-25 16:00 | EDM.PDOC ---
ED HPI GENERAL MEDICAL PROBLEM - General Chief Complaint: General Stated Complaint: [facility] Time Seen by Provider: 08/25/21 13:35 - History of Present Illness INITIAL COMMENTS - FREE TEXT/NARRATIVE: 61-year-old male brought in by [facility] with left arm weakness. Patient was last known normal at midnight Central time this last evening. Roughly 13 hours ago. He awoke around 1:00 this afternoon Central time. He had difficulty moving his left arm at that point and he was pretty weak and could not ambulate on his own. This patient's who is pretty attentive to the patient thought that this was perhaps due to the generalized weakness he wanted to shower but just could not. He notices decreased coordination and inability to extend and move his arm forward. Patient has a complicated past medical history had a brain tumor removed 21 years ago had radiation associated with this which entered him immunosuppressed so he takes prednisone daily. The patient also has seizures and is on multiple antiepileptic medications with good control. About 6 years ago the patient was in a traumatic event had a neck fracture and at that time they identified blood clots behind both knees and he takes Xarelto for this. - Related Data Allergies Allergy/AdvReac Type Severity Reaction Status Date / Time No Known Allergies Allergy Verified 08/25/21 13:42 Home Meds: Home Meds Levothyroxine Sodium [Synthroid] 150 mcg PO DAILY 09/28/20 [History] Phenytoin Sodium Extended [Dilantin] 200 mg PO BID 09/28/20 [History] Rivaroxaban [Xarelto] 10 mg PO DAILY 09/28/20 [History] atorvaSTATin [Lipitor] 40 mg PO DAILY 09/28/20 [History] levETIRAcetam [Keppra] 1,500 mg PO BID 09/28/20 [History] predniSONE [Prednisone] 7.5 mg PO DAILY 09/28/20 [History] Cholecalciferol (Vitamin D3) [Vitamin D3] 2,000 unit PO DAILY 08/25/21 [History] Multivitamin with Minerals [Multiple Vitamin] 1 tab PO DAILY 08/25/21 [History] Past Medical History HEENT History: Reports: Other (See Below) Other HEENT History: brain tumor 21 years ago. speech impairment Cardiovascular History: Reports: Other (See Below) Other Cardiovascular History: unknown Other Gastrointestinal History: H-pylori and ulcer Genitourinary History: Reports: Other (See Below) Other Genitourinary History: adrenal insufficiency Musculoskeletal History: Reports: Other (See Below) Other Musculoskeletal History: uses walker for ambulation, generalized weakness Neurological History: Reports: Seizure, TIA, Other (See Below) Other Neuro History: brain tumor in 1993 with radiation and removal, residual weakness from brain tumor surgery Endocrine/Metabolic History: Reports: Hypothyroidism, Other (See Below) Other Endocrine/Metabolic History: adrenal insufficency--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 Oncologic (Cancer) History: Reports: Other (See Below) Other Oncologic History: brain tumor - Past Surgical History Head Surgeries/Procedures: Reports: Craniotomy Other GI Surgeries/Procedures: small intestion ruptured, surgery at 7yo Endocrine Surgical History: Reports: Adrenal Gland Social & Family History - Tobacco Use Tobacco Use Status *Q: Current Every Day Tobacco User Years of Tobacco use: 30 Packs/Tins Daily: 0.5 - Caffeine Use Caffeine Use: Reports: None - Recreational Drug Use Recreational Drug Use: Yes Recreational Drug Type: Reports: Marijuana/Hashish - Living Situation & Occupation Living situation: Reports: Occupation: Disabled ED ROS GENERAL - Review of Systems Review Of Systems: See Below Constitutional: Reports: No Symptoms HEENT: Reports: No Symptoms Respiratory: Reports: No Symptoms Cardiovascular: Reports: No Symptoms GI/Abdominal: Reports: No Symptoms : Reports: Other (Patient was incontinent of urine last night) Musculoskeletal: Reports: No Symptoms Skin: Reports: No Symptoms Neurological: Reports: Gait Disturbance, Other (Left-sided especially arm weakness) Psychiatric: Reports: No Symptoms ED EXAM, GENERAL - Physical Exam Exam: See Below Exam Limited By: No Limitations General Appearance: Alert, No Apparent Distress Eye Exam: Bilateral Eye: Normal Inspection, PERRL Ears: Normal External Exam, Normal Canal, Hearing Grossly Normal, Normal TMs, Other (Hearing aids had to be removed for exam) Nose: Normal Inspection, Normal Mucosa, No Blood Throat/Mouth: Normal Inspection, Normal Lips, Normal Gums, Normal Oropharynx, Normal Voice, No Airway Compromise. No: Normal Teeth (Dentures in place) Head: Atraumatic, Normocephalic Neck: Normal Inspection, Supple, Non-Tender, Full Range of Motion. No: Lymphadenopathy (L), Lymphadenopathy (R) Respiratory/Chest: No Respiratory Distress, Lungs Clear, Normal Breath Sounds Cardiovascular: Regular Rate, Rhythm, No Edema, No Murmur GI/Abdominal: Normal Bowel Sounds, Soft, Non-Tender, No Organomegaly Extremities: Other (The patient has some weakness in his left arm this is markedly noticeable the patient will not extend out in front of him but he will move it laterally. 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 ) Neurological: CN II-XII Intact, Other (Extent some numbness in the left side cranial nerves II through XII grossly intact left arm as stated above left leg is weak but it is hard to discern if it is significantly weaker than his right) Psychiatric: Normal Affect, Normal Mood Skin Exam: Warm, Dry, Intact #1 Interpretation EKG Date: 08/25/21 Rhythm: NSR Rate (Beats/Min): 72 [place]: LAD-Left [place] Deviation P-Wave: Present QRS: Other (Suboptimal R wave progression) ST-T: Normal QT: Normal Comparison: No Change (No change compared to 07/19/2021) EKG Interpretation Comments: Abnormal EKG Course - Vital Signs Last Recorded V/S: Last Vital Signs Temp 36.1 C 08/25/21 13:37 Pulse 61 08/25/21 13:37 Resp 16 08/25/21 13:37 BP 138/102 H 08/25/21 13:37 Pulse Ox 98 08/25/21 13:37 - Orders/Labs/Meds Orders: Active Orders 24 hr Category Date Time Status Chest 1V Frontal [CR] Stat Exams 08/25/21 14:25 Taken Head wo Cont [CT] Stat Exams 08/25/21 14:23 Taken Labs: Laboratory Tests 08/25/21 08/25/21 08/25/21 Range/Units 14:37 14:50 14:50 WBC 8.87 (4.23-9.07) K/mm3 RBC 4.44 L (4.63-6.08) M/mm3 Hgb 14.0 (13.7-17.5) gm/dl Hct 41.6 (40.1-51.0) % MCV 93.7 H (79.0-92.2) fl MCH 31.5 (25.7-32.2) pg MCHC 33.7 (32.2-35.5) g/dl RDW Std Deviation 43.4 (35.1-43.9) fL Plt Count 238 (163-337) K/mm3 MPV 9.3 L (9.4-12.3) fl Neut % (Auto) 60.9 (34.0-67.9) % Lymph % (Auto) 28.0 (21.8-53.1) % [place] % (Auto) 8.5 (5.3-12.2) % Eos % (Auto) 2.1 (0.8-7.0) Baso % (Auto) 0.3 (0.1-1.2) % Neut # (Auto) 5.40 H (1.78-5.38) K/mm3 Lymph # (Auto) 2.48 (1.32-3.57) K/mm3 [place] # (Auto) 0.75 (0.30-0.82) K/mm3 Eos # (Auto) 0.19 (0.04-0.54) K/mm3 Baso # (Auto) 0.03 (0.01-0.08) K/mm3 PT (9.7-12.0) SECONDS INR APTT (21.7-31.4) SECONDS Sodium 141 (136-145) mEq/L Potassium 3.9 (3.5-5.1) mEq/L Chloride 107 (98-107) mEq/L Carbon Dioxide 29 (21-32) mEq/L Anion Gap 8.9 (5-15) BUN 16 (7-18) mg/dL Creatinine 0.9 (0.7-1.3) mg/dL Est Cr Clr Drug Dosing 94.94 mL/min Estimated GFR (MDRD) > 60 (>60) mL/min BUN/Creatinine Ratio 17.8 (14-18) Glucose 98 (70-99) mg/dL Calcium 8.5 (8.5-10.1) mg/dL Total Bilirubin 0.3 (0.2-1.0) mg/dL AST 24 (15-37) U/L ALT 28 (16-63) U/L Alkaline Phosphatase 124 H (46-116) U/L Troponin I < 0.017 (0.00-0.056) ng/mL Total Protein 6.8 (6.4-8.2) g/dl Albumin 3.4 (3.4-5.0) g/dl Globulin 3.4 gm/dL Albumin/Globulin Ratio 1.0 (1-2) Urine Color (Yellow) Urine Appearance (Clear) Urine pH (5.0-8.0) Ur Specific [place] (1.005-1.030) Urine Protein (Negative) Urine Glucose (UA) (Negative) Urine Ketones (Negative) Urine Occult Blood (Negative) Urine Nitrite (Negative) Urine Bilirubin (Negative) Urine Urobilinogen (0.2-1.0) Ur Leukocyte Esterase (Negative) U Hyaline Cast (Auto) (0-5) /lpf Urine RBC (0-5) /hpf Urine WBC (0-5) /hpf Ur Squamous Epith Cells (0-5) /hpf Urine Bacteria (FEW) /hpf Urine Mucus (FEW) /hpf Urine Opiates Screen (CBEJAS=354) Ur Buprenorphine Scrn (CUTOFF=10) Ur Oxycodone Screen (IFB7AZ=213) Urine Methadone Screen (APB0XA=283) Ur Propoxyphene Screen (QZIVSM=735) Ur Barbiturates Screen (VRLTHT=757) Ur Tricyclics Screen (TIWRUJ=774) Ur Phencyclidine Scrn (CUTOFF=25) Ur Amphetamine Screen (FODXVN=258) U Methamphetamines Scrn (TXDCMR=723) U Benzodiazepines Scrn (ZTHQSB=399) U Cocaine Metab Screen (CYNPYO=853) U Marijuana (THC) Screen (CUTOFF=50) Ethyl Alcohol 0.00 (0.00) gm% SARS-CoV-2 RNA (JENARO) Negative (NEGATIVE) 08/25/21 08/25/21 08/25/21 Range/Units 14:50 14:56 14:56 WBC (4.23-9.07) K/mm3 RBC (4.63-6.08) M/mm3 Hgb (13.7-17.5) gm/dl Hct (40.1-51.0) % MCV (79.0-92.2) fl MCH (25.7-32.2) pg MCHC (32.2-35.5) g/dl RDW Std Deviation (35.1-43.9) fL Plt Count (163-337) K/mm3 MPV (9.4-12.3) fl Neut % (Auto) (34.0-67.9) % Lymph % (Auto) (21.8-53.1) % [place] % (Auto) (5.3-12.2) % Eos % (Auto) (0.8-7.0) Baso % (Auto) (0.1-1.2) % Neut # (Auto) (1.78-5.38) K/mm3 Lymph # (Auto) (1.32-3.57) K/mm3 [place] # (Auto) (0.30-0.82) K/mm3 Eos # (Auto) (0.04-0.54) K/mm3 Baso # (Auto) (0.01-0.08) K/mm3 PT 10.5 (9.7-12.0) SECONDS INR 0.94 APTT 25.9 (21.7-31.4) SECONDS Sodium (136-145) mEq/L Potassium (3.5-5.1) mEq/L Chloride (98-107) mEq/L Carbon Dioxide (21-32) mEq/L Anion Gap (5-15) BUN (7-18) mg/dL Creatinine (0.7-1.3) mg/dL Est Cr Clr Drug Dosing mL/min Estimated GFR (MDRD) (>60) mL/min BUN/Creatinine Ratio (14-18) Glucose (70-99) mg/dL Calcium (8.5-10.1) mg/dL Total Bilirubin (0.2-1.0) mg/dL AST (15-37) U/L ALT (16-63) U/L Alkaline Phosphatase (46-116) U/L Troponin I (0.00-0.056) ng/mL Total Protein (6.4-8.2) g/dl Albumin (3.4-5.0) g/dl Globulin gm/dL Albumin/Globulin Ratio (1-2) Urine Color Yellow (Yellow) Urine Appearance Clear (Clear) Urine pH 7.0 (5.0-8.0) Ur Specific [place] 1.025 (1.005-1.030) Urine Protein Negative (Negative) Urine Glucose (UA) Negative (Negative) Urine Ketones Negative (Negative) Urine Occult Blood 1+ H (Negative) Urine Nitrite Negative (Negative) Urine Bilirubin Negative (Negative) Urine Urobilinogen 0.2 (0.2-1.0) Ur Leukocyte Esterase Negative (Negative) U Hyaline Cast (Auto) 0-5 (0-5) /lpf Urine RBC 20-30 H (0-5) /hpf Urine WBC 0-5 (0-5) /hpf Ur Squamous Epith Cells 0-5 (0-5) /hpf Urine Bacteria Few (FEW) /hpf Urine Mucus Few (FEW) /hpf Urine Opiates Screen Negative (KNDNAS=978) Ur Buprenorphine Scrn Negative (CUTOFF=10) Ur Oxycodone Screen Negative (MPQ7UV=528) Urine Methadone Screen Negative (JFA6UF=182) Ur Propoxyphene Screen Negative (SNKVJO=610) Ur Barbiturates Screen Presumptive positive H (WRLFVJ=107) Ur Tricyclics Screen Negative (NANYHB=785) Ur Phencyclidine Scrn Negative (CUTOFF=25) Ur Amphetamine Screen Negative (SVNDYY=662) U Methamphetamines Scrn Negative (YKCJPT=538) U Benzodiazepines Scrn Negative (UUVHSL=649) U Cocaine Metab Screen Negative (WPAJIK=241) U Marijuana (THC) Screen Negative (CUTOFF=50) Ethyl Alcohol (0.00) gm% SARS-CoV-2 RNA (JENARO) (NEGATIVE) - Re-Assessments/Exams Free Text/Narrative Re-Assessment/Exam: 08/25/21 16:43 Work-up is concerning for a CT that shows a subacute stroke in the distribution of the right PHOTOGRAPHER FINISH territory. Case was discussed with , neurologist at [facility] in [place] who recommends patient be transferred over for further evaluation and consideration for thrombectomy treatment. Case was discussed with Dr. Doran in the emergency room who is excepting physician who kindly accepts the patient. Departure - Departure Time of Disposition: 16:47 Disposition: DC/Tfer to Acute Hospital 02 Clinical Impression: CVA, Cerebrovascular accident - Discharge Information Referrals: PCP,Not In Area [Primary Care Provider] - Forms: ED Department Discharge Sepsis Event Note (ED) - Evaluation Sepsis Screening Result: No Definite Risk - Focused Exam Vital Signs: Vital Signs Temp Pulse Resp BP Pulse Ox 08/25/21 13:37 36.1 C 61 16 138/102 H 98 - My Orders Last 24 Hours: My Active Orders 08/25/21 14:23 Head wo Cont [CT] Stat 08/25/21 14:25 Chest 1V Frontal [CR] Stat - Assessment/Plan Last 24 Hours: My Active Orders 08/25/21 14:23 Head wo Cont [CT] Stat 08/25/21 14:25 Chest 1V Frontal [CR] Stat
--- NOTE | 2021-08-26 09:29 | CT ---
Head CT Technique: Multiple axial sections through the brain were obtained. Reconstructed coronal and sagittal images were obtained. Comparison: Prior head CT study of 07/19/21. Findings: Low density area is seen within the right occipital lobe suspicious for fairly acute infarct. Old infarct is noted within the posterior left parietal region. Old infarct is noted within the left periventricular white matter. Minimal diminished density is noted within the periventricular white matter compatible with small vessel ischemic demyelination change. Small calcification is seen outside the brain within the right frontal region which is stable. Mild increased subdural spaces are noted on both sides most likely representing minimal chronic subdural hematomas. Interventricular shunt is seen. Prior sternotomy is noted. Visualized paranasal sinuses are clear. Minimal chronic mucosal thickening is seen within the inferior left mastoid sinus which is stable. No acute calvarial abnormality is appreciated. Impression: 1. Findings highly suspicious for fairly acute infarct within the posterior right occipital lobe. This could be confirmed with MRI if clinically needed. 2. Other stable findings as described above. Diagnostic code #5 I agree with preliminary report from [facility], finalized on 08/25/21, 4:32 AM CDT, code 1
--- NOTE | 2021-08-26 09:29 | CR ---
Chest: Portable view of the chest was obtained. Comparison: Prior chest CT study of 07/19/21 and chest x-ray of 03/16/15. Heart size and mediastinum are normal. Lungs are clear with no acute parenchymal change. Ventriculoperitoneal shunt is seen on the right side. Bony structures show nothing acute. Surgical clips are seen from prior cholecystectomy. Impression: 1. Findings as described above. 2. Nothing acute is seen on portable chest x-ray. Diagnostic code #2
== END 2021-08-25 17:26 ==
LOC: JD.ED 13:29
DX: I63.9 Cerebral infarction, unspecified (principal); R56.9 Unspecified convulsions; E03.9 Hypothyroidism, unspecified; R94.31 Abnormal electrocardiogram [ECG] [EKG]; Z72.0 Tobacco use; Z79.899 Other long term (current) drug therapy; Z79.01 Long term (current) use of anticoagulants; Z20.822 Contact with and (suspected) exposure to COVID-19
CPT/HCPCS: 36415; 70450; 71045; 80053; 80306; 80307; 81001; 84484; 85025; 85610; 85730; 93005; 99285; U0002

== ENCOUNTER 2021-10-29 14:52 | Emergency (ER) | payer MEDICARE, OTHER ==
[2021-10-29 16:01] VITALS: BP 104/68; PULSE 73
--- NOTE | 2021-10-29 16:02 | EDM.PDOC ---
ED HPI GENERAL MEDICAL PROBLEM - General Chief Complaint: Upper Extremity Injury/Pain Stated Complaint: WRIST INJURY Time Seen by Provider: 10/29/21 15:34 Source of Information: Reports: Patient, RN Notes Reviewed History Limitations: Reports: No Limitations - History of Present Illness INITIAL COMMENTS - FREE TEXT/NARRATIVE: Patient is a 61-year-old male who presents to the ER with his for the evaluation of a left wrist and left ankle injury. states that the patient had a previous stroke, and has some residual left-sided weakness. also states most of the PMH. He is in the skilled nursing in [facility] for rehab. The states that she was trying to help him off the toilet; to see if he would be able to do this himself. She states that he became weak when he was getting off the toilet, and his left leg gave out, and his left wrist got stuck between the handrail and the wall. She was concerned about the possibility of fracture so she brings him here for evaluation. Patient did take a Tylenol in route to the ER. Upon arrival to the ER the patient is now complaining of left ankle pain as well on movement. There is some mild bruising noted to the lateral portion of the left ankle. Other than the reported weakness, patient denies any other sick-like symptoms, fever/chills, cough/shortness of breath, nausea/vomiting/diarrhea. 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 Left Wrist Pain Score (Numeric/FACES): 7 - Related Data Allergies Allergy/AdvReac Type Severity Reaction Status Date / Time No Known Allergies Allergy Verified 08/25/21 13:42 Home Meds: Home Meds Levothyroxine Sodium [Synthroid] 150 mcg PO DAILY 09/28/20 [History] Phenytoin Sodium Extended [Dilantin] 200 mg PO BID 09/28/20 [History] Rivaroxaban [Xarelto] 10 mg PO DAILY 09/28/20 [History] atorvaSTATin [Lipitor] 40 mg PO DAILY 09/28/20 [History] levETIRAcetam [Keppra] 1,500 mg PO BID 09/28/20 [History] predniSONE [Prednisone] 7.5 mg PO DAILY 09/28/20 [History] Cholecalciferol (Vitamin D3) [Vitamin D3] 2,000 unit PO DAILY 08/25/21 [History] Multivitamin with Minerals [Multiple Vitamin] 1 tab PO DAILY 08/25/21 [History] Past Medical History HEENT History: Reports: Other (See Below) Other HEENT History: brain tumor 21 years ago. 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, residual weakness from brain tumor surgery Endocrine/Metabolic History: Reports: Hypothyroidism, Other (See Below) Other Endocrine/Metabolic History: adrenal insufficency--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 Oncologic (Cancer) History: Reports: Other (See Below) Other Oncologic History: brain tumor-base of brain - Past Surgical History Head Surgeries/Procedures: Reports: Craniotomy Other GI Surgeries/Procedures: small intestion ruptured, surgery at 7yo Endocrine Surgical History: Reports: Adrenal Gland Social & Family History - Tobacco Use Tobacco Use Status *Q: Former Tobacco User Used Tobacco, but Quit: Yes Month/Year Tobacco Last Used: 2 yrs ago - Caffeine Use Caffeine Use: Reports: None - Recreational Drug Use Recreational Drug Use: No - Living Situation & Occupation Living situation: Reports: Occupation: Disabled Review of Systems - Review of Systems Review Of Systems: Comprehensive ROS is negative, except as noted in HPI. ED EXAM, GENERAL - Physical Exam Exam: See Below Exam Limited By: No Limitations General Appearance: Alert, WD/WN, No Apparent Distress Respiratory/Chest: No Respiratory Distress, Lungs Clear, Normal Breath Sounds, No Accessory Muscle Use, Chest Non-Tender Cardiovascular: Normal Peripheral Pulses, Regular Rate, Rhythm, No Edema Peripheral Pulses: 2+: Radial (L), Radial (R), Dorsalis Pedis (L), Dorsalis Pedis (R) Extremities: Normal Range of Motion, Normal Capillary Refill, Limited Range of Motion (of left wrist and left ankle d/t pain) Neurological: Alert, Oriented, Normal Cognition, No Motor/Sensory Deficits Psychiatric: Normal Affect, Normal Mood Skin Exam: Warm, Dry, Intact, No Rash, Ecchymosis (to left lateral ankle), Erythema (some slight redness to the posterior surface of the left forearm, no skin tears/lacerations noted) Course - Vital Signs Last Recorded V/S: Last Vital Signs Temp 97.7 F 10/29/21 15:57 Pulse 73 10/29/21 15:57 Resp 20 10/29/21 15:57 BP 104/68 10/29/21 15:57 Pulse Ox 95 10/29/21 15:57 - Orders/Labs/Meds Orders: Active Orders 24 hr Category Date Time Status Communication Order [RC] ASDIRECTED Care 10/29/21 15:36 Active Communication Order [RC] ASDIRECTED Care 10/29/21 15:36 Active Communication Order [RC] ROUTINE Care 10/29/21 15:36 Active - Re-Assessments/Exams Free Text/Narrative Re-Assessment/Exam: 10/29/21 16:04 Patient presents to the ER for evaluation of his left wrist and ankle injury. Left wrist x-rays were obtained at the time of triage due to his reported injury but after talking with the patient he is complaining of left ankle pain as well as, so we will go ahead and x-ray the ankle to make sure there are no fractures. Patient states his pain is under control at this time. Departure - Departure Time of Disposition: 16:49 Disposition: Home, Self-Care 01 Condition: Good Clinical Impression: Wrist pain, left Left ankle sprain Qualifiers: Encounter type: initial encounter Involved ligament of ankle: unspecified ligament Qualified Code(s): S93.402A - Sprain of unspecified ligament of left ankle, initial encounter - Discharge Information *PRESCRIPTION DRUG MONITORING PROGRAM REVIEWED*: No *COPY OF PRESCRIPTION DRUG MONITORING REPORT IN PATIENT LAURIE: No Instructions: Ankle Sprain, [id number] Referrals: Buzz Michael MD [Primary Care Provider] - Forms: ED Department Discharge Additional Instructions: You have been evaluated in the ED for your left wrist and left ankle injury. Your x-ray demonstrated no acute fractures of your left wrist or left ankle. Please use ice as tolerated to the affected area. Please try to elevate the affected area to relieve swelling. You may take Tylenol 500 mg or ibuprofen 600mg q6 hrs for pain relief. Please do so until you have a tolerable level of pain with activity. Do not exceed 4000mg Tylenol or 3200mg ibuprofen in a 24 hour time period. Please follow-up with your regular provider for re-evaluation, if your injury is not feeling much better in roughly 7 to 10 days time. Please return to ED if your symptoms should change or worsen. Sepsis Event Note (ED) - Focused Exam Vital Signs: Vital Signs Temp Pulse Resp BP Pulse Ox 10/29/21 15:57 97.7 F 73 20 104/68 95 - My Orders Last 24 Hours: My Active Orders 10/29/21 15:36 Communication Order [RC] ASDIRECTED Communication Order [RC] ASDIRECTED Communication Order [RC] ROUTINE - Assessment/Plan Last 24 Hours: My Active Orders 10/29/21 15:36 Communication Order [RC] ASDIRECTED Communication Order [RC] ASDIRECTED Communication Order [RC] ROUTINE
--- NOTE | 2021-10-29 16:32 | CR ---
Left wrist: 4 views of the left wrist were obtained. Comparison: No previous wrist study is available. Joint spaces are fairly well preserved. Small calcification is seen off the posterior wrist compatible with old injury. No definite acute fracture, dislocation or other bony abnormality is appreciated. Impression: 1. Presumed old injury as described above. 2. No acute abnormality is appreciated on left wrist study. Diagnostic code #2
--- NOTE | 2021-10-29 16:44 | CR ---
Left ankle: 4 views of the left ankle were obtained. Comparison: No prior left ankle study is available. Small calcifications are seen off the inferior lateral malleolus compatible with old injury. Calcifications are also noted as well as mild irregularity off the anterior and dorsal talus compatible with old injury. Ankle mortise is symmetric. No acute fracture, dislocation or other bony abnormality is seen. Impression: 1. Findings of old injury as noted above. 2. Nothing acute is seen on left ankle exam. Diagnostic code #2
== END 2021-10-29 17:13 | disposition home or self-care (01) ==
LOC: JD.ED 14:52
DX: S93.402A Sprain of unspecified ligament of left ankle, initial encounter (principal); R56.9 Unspecified convulsions; M25.532 Pain in left wrist; Z87.891 Personal history of nicotine dependence; Z86.73 Personal history of transient ischemic attack (TIA), and cerebral infarction without residual deficits; Z79.899 Other long term (current) drug therapy; Z79.01 Long term (current) use of anticoagulants; W22.8XXA Striking against or struck by other objects, initial encounter
CPT/HCPCS: 73110-26-LT; 73110-LT; 73610-26-LT; 73610-LT; 99283

== ENCOUNTER 2023-02-09 19:26 | Inpatient (IN) | payer MEDICARE, OTHER ==
[2023-02-09] MEDS ORDERED: Sodium Chloride 0.9% 10 ML Syringe FLUSH PRN (21:07)
[2023-02-09] MEDS ORDERED: Sodium Chloride 0.9% 1,000 ML IV SCH (21:30)
[2023-02-09 21:46] LABS: ESTIMATED GFR 56 mL/min (>60)
[2023-02-09] MEDS ORDERED: Potassium Chloride 20 MEQ Tab.ER PO ONE (22:08)
[2023-02-09] MEDS ORDERED: Iopamidol 755 Mg/ML 100 ML Bottle IVPUSH ONE (23:21)
[2023-02-09] MEDS ORDERED: Sodium Chloride 0.9% 100 ML IV SCH (23:30)
[2023-02-09 23:33] LABS: CORONAVIRUS COVID-19 NAA POSITIVE (NEGATIVE)
[2023-02-09] MEDS ORDERED: Dexamethasone 6 MG TABLET PO ONE (23:57)
[2023-02-09] MEDS ORDERED: REMDESIVIR 200 MG in Sodium Chloride 0.9% 250 ML IV ONE (23:57)
[2023-02-10] MEDS ORDERED: Morphine 2 MG/ML SYRINGE IVPUSH PRN (04:05)
[2023-02-10] MEDS ORDERED: Ondansetron 4 MG/2 ML SDV IV PRN (04:05)
[2023-02-10] MEDS ORDERED: oxyCODONE 5 MG Tab PO PRN (04:05)
[2023-02-10] MEDS ORDERED: Acetaminophen 325 MG Tab PO PRN (04:05)
[2023-02-10] MEDS ORDERED: Albuterol/Ipratropium 3.0-0.5 MG/3 ML Neb Soln NEB PRN (04:05)
[2023-02-10] MEDS ORDERED: Sodium Chloride 0.9% 1,000 ML IV SCH (04:15)
[2023-02-10] MEDS ORDERED: Heparin Sodium 5,000 Units/ML Vial SUBCUT SCH (05:00)
[2023-02-10] MEDS: Midodrine 5 MG Tab PO SCH ×3 (07:22→17:03)
[2023-02-10] MEDS: Levothyroxine 112 MCG Tab PO SCH (07:22)
[2023-02-10] MEDS: Levothyroxine 25 MCG Tab PO SCH (07:22)
[2023-02-10] MEDS ORDERED: Phenytoin 100 MG Cap.ER PO SCH (09:00)
[2023-02-10] MEDS ORDERED: LEVOTHYROXINE SODIUM 150 MCG PO SCH (09:00)
[2023-02-10] MEDS ORDERED: Multivitamins with Iron/Calcium/Folic Acid/Minerals Tab PO SCH (09:00)
[2023-02-10] MEDS ORDERED: Non-Formulary Medication 1 Each (Rivaroxaban [Xarelto] 20 MG Tablet) PO SCH (09:00)
[2023-02-10] MEDS: Dexamethasone 10 MG/ML SDV IV SCH (09:38)
[2023-02-10] MEDS: Apixaban 5 MG Tab PO SCH ×2 (09:38→21:01)
[2023-02-10] MEDS: Multivitamin Tab PO SCH (09:39)
[2023-02-10] MEDS: levETIRAcetam 500 MG Tab PO SCH ×2 (09:39→21:01)
[2023-02-10] MEDS: Fludrocortisone 0.1 MG Tab PO SCH (09:39)
[2023-02-10] MEDS: Cholecalciferol (Vitamin D3) 25 MCG Tab PO SCH (09:39)
[2023-02-10] MEDS: REMDESIVIR 100 MG in Sodium Chloride 0.9% 250 ML IV SCH (21:02)
[2023-02-11] MEDS: Midodrine 5 MG Tab PO SCH ×3 (06:31→17:23)
[2023-02-11] MEDS: Levothyroxine 25 MCG Tab PO SCH (06:31)
[2023-02-11] MEDS: Levothyroxine 112 MCG Tab PO SCH (06:32)
[2023-02-11] MEDS: levETIRAcetam 500 MG Tab PO SCH ×2 (09:25→20:47)
[2023-02-11] MEDS: Multivitamin Tab PO SCH (09:25)
[2023-02-11] MEDS: Fludrocortisone 0.1 MG Tab PO SCH (09:26)
[2023-02-11] MEDS: Apixaban 5 MG Tab PO SCH ×2 (09:26→20:47)
[2023-02-11] MEDS: Cholecalciferol (Vitamin D3) 25 MCG Tab PO SCH (09:26)
[2023-02-11] MEDS: Dexamethasone 10 MG/ML SDV IV SCH (09:26)
[2023-02-11] MEDS: REMDESIVIR 100 MG in Sodium Chloride 0.9% 250 ML IV SCH (20:47)
[2023-02-12] MEDS: Levothyroxine 25 MCG Tab PO SCH (07:41)
[2023-02-12] MEDS: Levothyroxine 112 MCG Tab PO SCH (07:41)
[2023-02-12] MEDS: Cholecalciferol (Vitamin D3) 25 MCG Tab PO SCH (09:10)
[2023-02-12] MEDS: levETIRAcetam 500 MG Tab PO SCH ×2 (09:11→21:13)
[2023-02-12] MEDS: Apixaban 5 MG Tab PO SCH ×2 (09:11→21:12)
[2023-02-12] MEDS: Fludrocortisone 0.1 MG Tab PO SCH (09:11)
[2023-02-12] MEDS: Multivitamin Tab PO SCH (09:11)
[2023-02-12] MEDS: Midodrine 5 MG Tab PO SCH ×3 (09:11→17:46)
[2023-02-12] MEDS: Dexamethasone 10 MG/ML SDV IV SCH (09:11)
[2023-02-12] MEDS: REMDESIVIR 100 MG in Sodium Chloride 0.9% 250 ML IV SCH (21:13)
[2023-02-13] MEDS: Midodrine 5 MG Tab PO SCH ×3 (06:30→17:58)
[2023-02-13] MEDS: Levothyroxine 25 MCG Tab PO SCH (06:30)
[2023-02-13] MEDS: Levothyroxine 112 MCG Tab PO SCH (06:30)
[2023-02-13] MEDS: predniSONE 5 MG Tab PO SCH ×2 (09:10→15:17)
[2023-02-13] MEDS: Multivitamin Tab PO SCH (09:10)
[2023-02-13] MEDS: Cholecalciferol (Vitamin D3) 25 MCG Tab PO SCH (09:10)
[2023-02-13] MEDS: levETIRAcetam 500 MG Tab PO SCH ×2 (09:10→20:21)
[2023-02-13] MEDS: Apixaban 5 MG Tab PO SCH ×2 (09:10→20:21)
[2023-02-13] MEDS: Fludrocortisone 0.1 MG Tab PO SCH (09:10)
[2023-02-13] MEDS ORDERED: Sodium Chloride 0.9% 250 ML ONE (20:12)
[2023-02-13] MEDS: REMDESIVIR 100 MG in Sodium Chloride 0.9% 250 ML IV SCH (20:21)
[2023-02-14] MEDS: Levothyroxine 25 MCG Tab PO SCH (06:04)
[2023-02-14] MEDS: Midodrine 5 MG Tab PO SCH ×3 (06:04→18:41)
[2023-02-14] MEDS: Levothyroxine 112 MCG Tab PO SCH (06:04)
[2023-02-14] MEDS: levETIRAcetam 500 MG Tab PO SCH ×2 (09:22→20:36)
[2023-02-14] MEDS: Potassium Chloride 20 MEQ Tab.ER PO SCH ×2 (09:22→20:35)
[2023-02-14] MEDS: Cholecalciferol (Vitamin D3) 25 MCG Tab PO SCH (09:22)
[2023-02-14] MEDS: Apixaban 5 MG Tab PO SCH ×2 (09:23→20:35)
[2023-02-14] MEDS: predniSONE 5 MG Tab PO SCH ×2 (09:23→14:45)
[2023-02-14] MEDS: Multivitamin Tab PO SCH (09:23)
[2023-02-14] MEDS: Fludrocortisone 0.1 MG Tab PO SCH (09:23)
[2023-02-15] MEDS: Levothyroxine 25 MCG Tab PO SCH (06:00)
[2023-02-15] MEDS: Midodrine 5 MG Tab PO SCH ×3 (06:01→18:06)
[2023-02-15] MEDS: Levothyroxine 112 MCG Tab PO SCH (06:01)
[2023-02-15] MEDS: Potassium Chloride 20 MEQ Tab.ER PO SCH (09:37)
[2023-02-15] MEDS: Cholecalciferol (Vitamin D3) 25 MCG Tab PO SCH (09:37)
[2023-02-15] MEDS: Fludrocortisone 0.1 MG Tab PO SCH (09:38)
[2023-02-15] MEDS: Apixaban 5 MG Tab PO SCH ×2 (09:38→20:01)
[2023-02-15] MEDS: levETIRAcetam 500 MG Tab PO SCH ×2 (09:38→20:01)
[2023-02-15] MEDS: Multivitamin Tab PO SCH (09:38)
[2023-02-15] MEDS: predniSONE 5 MG Tab PO SCH ×2 (09:39→15:07)
[2023-02-16] MEDS: Midodrine 5 MG Tab PO SCH ×3 (06:05→17:23)
[2023-02-16] MEDS: Levothyroxine 25 MCG Tab PO SCH (06:05)
[2023-02-16] MEDS: Levothyroxine 112 MCG Tab PO SCH (06:05)
[2023-02-16] MEDS: levETIRAcetam 500 MG Tab PO SCH ×2 (09:38→21:22)
[2023-02-16] MEDS: Multivitamin Tab PO SCH (09:39)
[2023-02-16] MEDS: Fludrocortisone 0.1 MG Tab PO SCH (09:39)
[2023-02-16] MEDS: predniSONE 5 MG Tab PO SCH ×2 (09:39→14:41)
[2023-02-16] MEDS: Cholecalciferol (Vitamin D3) 25 MCG Tab PO SCH (09:39)
[2023-02-16] MEDS: Apixaban 5 MG Tab PO SCH ×2 (09:39→21:22)
[2023-02-16] MEDS ORDERED: Docusate Sodium 100 MG Cap PO PRN (18:00)
[2023-02-17] MEDS: Midodrine 5 MG Tab PO SCH ×3 (06:36→17:36)
[2023-02-17] MEDS: Levothyroxine 25 MCG Tab PO SCH (06:36)
[2023-02-17] MEDS: Levothyroxine 112 MCG Tab PO SCH (06:37)
[2023-02-17] MEDS: Fludrocortisone 0.1 MG Tab PO SCH (08:54)
[2023-02-17] MEDS: levETIRAcetam 500 MG Tab PO SCH ×2 (08:54→21:27)
[2023-02-17] MEDS: Cholecalciferol (Vitamin D3) 25 MCG Tab PO SCH (08:54)
[2023-02-17] MEDS: predniSONE 5 MG Tab PO SCH ×2 (08:55→15:36)
[2023-02-17] MEDS: Apixaban 5 MG Tab PO SCH ×2 (08:55→21:27)
[2023-02-17] MEDS: Multivitamin Tab PO SCH (08:55)
[2023-02-17] MEDS ORDERED: Ondansetron 4 MG Tab.DIS PO PRN (15:34)
[2023-02-18] MEDS: Midodrine 5 MG Tab PO SCH ×3 (06:08→18:23)
[2023-02-18] MEDS: Levothyroxine 25 MCG Tab PO SCH (06:09)
[2023-02-18] MEDS: Levothyroxine 112 MCG Tab PO SCH (06:09)
[2023-02-18] MEDS: levETIRAcetam 500 MG Tab PO SCH ×2 (09:50→20:56)
[2023-02-18] MEDS: Cholecalciferol (Vitamin D3) 25 MCG Tab PO SCH (09:50)
[2023-02-18] MEDS: Fludrocortisone 0.1 MG Tab PO SCH (09:50)
[2023-02-18] MEDS: predniSONE 5 MG Tab PO SCH ×2 (09:51→15:25)
[2023-02-18] MEDS: Multivitamin Tab PO SCH (09:51)
[2023-02-18] MEDS: Apixaban 5 MG Tab PO SCH ×2 (09:51→20:57)
[2023-02-19] MEDS: Levothyroxine 25 MCG Tab PO SCH (06:03)
[2023-02-19] MEDS: Midodrine 5 MG Tab PO SCH (06:03)
[2023-02-19] MEDS: Levothyroxine 112 MCG Tab PO SCH (06:04)
[2023-02-19 08:41] VITALS: BP 122/71; PULSE 59
[2023-02-19] MEDS: predniSONE 5 MG Tab PO SCH (09:04)
[2023-02-19] MEDS: Cholecalciferol (Vitamin D3) 25 MCG Tab PO SCH (09:04)
[2023-02-19] MEDS: Multivitamin Tab PO SCH (09:05)
[2023-02-19] MEDS: levETIRAcetam 500 MG Tab PO SCH (09:05)
[2023-02-19] MEDS: Fludrocortisone 0.1 MG Tab PO SCH (09:05)
[2023-02-19] MEDS: Apixaban 5 MG Tab PO SCH (09:05)
== END 2023-02-19 13:23 | DRG 177 ==
LOC: JD.ED 19:26 → JD.MS 02-10 03:34
PROVIDERS: ADMIT Internal Medicine; ATTEND Internal Medicine
PROC: XW033E5 Introduction of Remdesivir Anti-infective into Peripheral Vein, Percutaneous Approach, New Technology Group 5 (ICD-10-PCS; principal; 2023-02-10)
PROC: 3E0333Z Introduction of Anti-inflammatory into Peripheral Vein, Percutaneous Approach (ICD-10-PCS; 2023-02-10)
DX: U07.1 COVID-19 (principal); R09.02 Hypoxemia; J96.01 Acute respiratory failure with hypoxia; E27.40 Unspecified adrenocortical insufficiency; I69.320 Aphasia following cerebral infarction; J98.11 Atelectasis; E23.0 Hypopituitarism; Z79.01 Long term (current) use of anticoagulants; Z79.899 Other long term (current) drug therapy; I69.354 Hemiplegia and hemiparesis following cerebral infarction affecting left non-dominant side; N17.9 Acute kidney failure, unspecified; E87.20 Acidosis, unspecified; E87.3 Alkalosis; F01.B0 Vascular dementia, moderate, without behavioral disturbance, psychotic disturbance, mood disturbance, and anxiety; E87.6 Hypokalemia; E03.9 Hypothyroidism, unspecified; N18.9 Chronic kidney disease, unspecified; R73.9 Hyperglycemia, unspecified; G40.909 Epilepsy, unspecified, not intractable, without status epilepticus; Z79.890 Hormone replacement therapy; Z92.3 Personal history of irradiation; I69.920 Aphasia following unspecified cerebrovascular disease; Z98.890 Other specified postprocedural states; Z90.49 Acquired absence of other specified parts of digestive tract; Z98.2 Presence of cerebrospinal fluid drainage device; Z87.11 Personal history of peptic ulcer disease; Z85.841 Personal history of malignant neoplasm of brain; Z87.898 Personal history of other specified conditions
CPT/HCPCS: 0241U; 36415; 36600; 70450; 71045; 71275; 74177; 80048; 80053; 81001; 82803; 83605; 83690; 83735; 84484; 85007; 85025; 85027; 85379; 85610; 85730; 86140; 87040; 93005; 93970; 94762; 97110; 97116; 97162; 97166; 97530; 93010; 99285; A9270-GY; J0248; J1100; J7030; J7050; J7512; J8540; Q9967